=== PATIENT | female | born 1965 | race Caucasian/White ===

== ENCOUNTER 2023-05-16 14:23 | Inpatient (IN) | payer SELFPAY ==
[2023-05-16] MEDS ORDERED: Zolpidem Tartrate 5 MG TAB PO PRN (19:44)
[2023-05-16] MEDS ORDERED: Calcium Carbonate 500 MG ChewTAB PO PRN (19:44)
[2023-05-16] MEDS ORDERED: Senokot S 8.6-50 MG TAB PO PRN (19:44)
[2023-05-16] MEDS ORDERED: Ondansetron PF 4 MG/2 ML Vial IVP PRN (19:44)
[2023-05-16] MEDS ORDERED: Guaifenesin DM 100-10/5 ML UDCUP PO PRN (19:44)
[2023-05-16] MEDS ORDERED: Morphine 2 MG/ML VIAL SLOW IVP PRN (19:48)
[2023-05-16] MEDS ORDERED: Ipratropium/Albuterol 3 ML NEB NEB PRN (19:50)
[2023-05-16] MEDS ORDERED: Lactated Ringer's 500 ML IV SCH ×2 (20:00→22:15)
[2023-05-16] MEDS ORDERED: Carvedilol 6.25 MG TAB PO SCH (20:00)
[2023-05-16 20:18] VITALS: BMI 32.4
[2023-05-16] MEDS: Atorvastatin Calcium 40 MG TAB PO SCH (20:38)
[2023-05-16] MEDS: Famotidine 20 MG TAB PO SCH (20:38)
[2023-05-16] MEDS: Acetaminophen 325 MG TAB PO PRN (20:38)
[2023-05-16] MEDS: HYDROcodone/Acetaminophen 5/325 mg Tablet PO PRN (20:38)
[2023-05-16] MEDS: Benzonatate 100 MG CAP PO SCH (20:38)
[2023-05-16 21:12] LABS: Bilirubin 1+ (Negative); Blood, Urine 150 (Negative); Clarity Clear (Clear); Glucose, Urine (Dipstick) Normal (Negative); Ketone, Urine 5 mg/dL (Negative); Leukocyte 25 (Negative); Nitrite Negative (Negative); Protein, Urine (Dipstick) 100 mg/dl (Neg-Trace)
[2023-05-16 21:30] LABS: Legionella Urinary Ag Negative (Negative); Strep pneumo Urine Ag NEGATIVE (NEGATIVE)
[2023-05-16 21:57] LABS: Bacteria/HPF 1+ HPF (None Seen); WBC/HPF 0-3 HPF (0-3)
[2023-05-17 03:59] LABS: #Basophils 0.1 10x3/uL (0.0-0.2); #Eosinphils 0.2 10x3/uL (0.0-0.5); #Monocytes 1.5 10x3/uL (0.0-1.1); #Neutrophils 8.3 10x3/uL (1.5-8.4); %Basophils 0.5 % (0.0-2.0); %Eosinophils 1.9 % (0.0-6.0); %Lymphocytes 18.2 % (18.0-47.0); %Monocytes 11.9 % (0.0-10.0); %Neutrophils 67.3 % (40.0-75.0); Hematocrit 33.3 % (34.9-44.5); Hemoglobin 10.7 g/dL (12.0-15.5); Mean Corpuscular HGB CONC 32.1 g/dL (32.0-36.0); Mean Corpuscular Hemoglobin 27.9 pg (27.0-33.0); Mean Corpuscular Volume 86.9 fl (81.6-98.3); Mean Platelet Volume 9.2 fl (7.4-10.4); Platelet Count 207 10x3/uL (150-450); RBC Distribution Width 13.7 % (11.5-14.5); Red Blood Cell (RBC) Count 3.83 10x6/uL (3.90-5.03); White Blood Cell (WBC) Count 12.3 10x3/uL (3.5-10.5)
[2023-05-17 04:17] LABS: Anion Gap 15 mmol/L (10-20); BUN (Urea Nitrogen) 10 mg/dL (9.8-20.1); Calc. Creatinine Clearance 130 mL/min (70-130); Calcium 8.5 mg/dL (7.8-10.44); Carbon Dioxide 21 mmol/L (22-29); Chloride 106 mmol/L (98-107); Estimated GFR 104; Glucose 102 mg/dL (70-105); Potassium 3.6 mmol/L (3.5-5.1); Sodium 138 mmol/L (136-145)
[2023-05-17] MEDS: HYDROcodone/Acetaminophen 5/325 mg Tablet PO PRN (05:50)
[2023-05-17] MEDS: Carvedilol 6.25 MG TAB PO SCH ×2 (08:00→15:40)
[2023-05-17 08:32] LABS: Troponin I 0.092 ng/mL (< 0.028)
[2023-05-17] MEDS: Aspirin 81 mg Enteric Coated Tablet PO SCH (09:00)
[2023-05-17] MEDS: Famotidine 20 MG TAB PO SCH ×2 (09:00→20:24)
[2023-05-17] MEDS: Benzonatate 100 MG CAP PO SCH ×3 (09:00→20:24)
[2023-05-17] MEDS: cefTRIAXone\\ROCEPHIN 2 GM in Sodium Chloride 0.9% 100 ML IVPB SCH (09:57)
[2023-05-17] MEDS: Azithromycin 500 MG in Sodium Chloride 0.9% 250 ML 250 ML IVPB SCH (10:05)
[2023-05-17 13:11] LABS: Hemoglobin A1c 5.6 % (4.0-6.0)
[2023-05-17] MEDS ORDERED: hydrALAZINE 20 MG/ML VIAL SLOW IVP PRN (16:16)
[2023-05-17] MEDS: Atorvastatin Calcium 40 MG TAB PO SCH (20:24)
[2023-05-17] MEDS: Acetaminophen 325 MG TAB PO PRN (20:24)
[2023-05-17] MEDS ORDERED: diphenhydrAMINE 50 MG/ML VIAL IVP SCH (22:15)
[2023-05-17] MEDS ORDERED: Metoclopramide HCl 10 MG/2 ML VIAL IVP SCH (22:15)
[2023-05-17] MEDS ORDERED: Sodium Chloride 0.9% 500 ML IV SCH (22:15)
[2023-05-18 03:20] LABS: #Basophils 0.1 10x3/uL (0.0-0.2); #Eosinphils 0.3 10x3/uL (0.0-0.5); #Monocytes 1.4 10x3/uL (0.0-1.1); %Basophils 0.5 % (0.0-2.0); %Eosinophils 2.3 % (0.0-6.0); %Lymphocytes 22.4 % (18.0-47.0); %Monocytes 12.4 % (0.0-10.0); Hematocrit 30.7 % (34.9-44.5); Hemoglobin 10.1 g/dL (12.0-15.5); Mean Corpuscular HGB CONC 32.9 g/dL (32.0-36.0); Mean Corpuscular Hemoglobin 28.7 pg (27.0-33.0); Mean Corpuscular Volume 87.2 fl (81.6-98.3); Mean Platelet Volume 9.9 fl (7.4-10.4); Platelet Count 238 10x3/uL (150-450); RBC Distribution Width 13.6 % (11.5-14.5); Red Blood Cell (RBC) Count 3.52 10x6/uL (3.90-5.03); White Blood Cell (WBC) Count 11.3 10x3/uL (3.5-10.5)
[2023-05-18 03:39] LABS: Anion Gap 15 mmol/L (10-20); BUN (Urea Nitrogen) 11 mg/dL (9.8-20.1); Calc. Creatinine Clearance 134 mL/min (70-130); Calcium 8.3 mg/dL (7.8-10.44); Carbon Dioxide 22 mmol/L (22-29); Chloride 105 mmol/L (98-107); Estimated GFR 104; Glucose 95 mg/dL (70-105); Potassium 3.7 mmol/L (3.5-5.1); Sodium 138 mmol/L (136-145)
[2023-05-18 03:56] LABS: Troponin I 0.081 ng/mL (< 0.028)
[2023-05-18] MEDS: Benzonatate 100 MG CAP PO SCH ×3 (09:51→21:34)
[2023-05-18] MEDS: Aspirin 81 mg Enteric Coated Tablet PO SCH (09:51)
[2023-05-18] MEDS: Famotidine 20 MG TAB PO SCH ×2 (09:51→21:35)
[2023-05-18] MEDS: Carvedilol 6.25 MG TAB PO SCH ×2 (09:52→16:27)
[2023-05-18] MEDS: Acetaminophen 325 MG TAB PO PRN (09:52)
[2023-05-18] MEDS: cefTRIAXone\\ROCEPHIN 2 GM in Sodium Chloride 0.9% 100 ML IVPB SCH (09:52)
[2023-05-18] MEDS: Azithromycin 500 MG in Sodium Chloride 0.9% 250 ML 250 ML IVPB SCH (09:52)
[2023-05-18] MEDS: Atorvastatin Calcium 40 MG TAB PO SCH (21:34)
[2023-05-18] MEDS: Apixaban 5 MG TAB PO SCH (21:34)
[2023-05-19] MEDS: Acetaminophen 325 MG TAB PO PRN (00:50)
[2023-05-19] MEDS: Aspirin 81 mg Enteric Coated Tablet PO SCH (08:33)
[2023-05-19] MEDS: Carvedilol 6.25 MG TAB PO SCH (08:33)
[2023-05-19] MEDS: Apixaban 5 MG TAB PO SCH (08:34)
[2023-05-19] MEDS: cefTRIAXone\\ROCEPHIN 2 GM in Sodium Chloride 0.9% 100 ML IVPB SCH (08:34)
[2023-05-19] MEDS: Benzonatate 100 MG CAP PO SCH ×2 (08:34→14:00)
[2023-05-19] MEDS: Famotidine 20 MG TAB PO SCH (08:34)
[2023-05-19] MEDS: Azithromycin 500 MG in Sodium Chloride 0.9% 250 ML 250 ML IVPB SCH (12:00)
[2023-05-19 13:38] VITALS: BP 132/72; TEMP 98.3
[2023-05-19] MEDS ORDERED: Metoprolol Tartrate 25 MG TAB PO SCH (21:00)
== END 2023-05-19 16:13 | disposition home or self-care (01) | DRG 871 ==
LOC: CSHTELE 19:12 → OBSVTOIN 19:44 → CSHIMCU 05-17 20:16 → CSHTELE 05-18 17:11
PROVIDERS: ADMIT Internal Medicine; ATTEND Internal Medicine
DX: A41.9 Sepsis, unspecified organism (principal); I21.A1 Myocardial infarction type 2; I26.99 Other pulmonary embolism without acute cor pulmonale; J18.9 Pneumonia, unspecified organism; J96.01 Acute respiratory failure with hypoxia; I82.433 Acute embolism and thrombosis of popliteal vein, bilateral; I50.32 Chronic diastolic (congestive) heart failure; E78.5 Hyperlipidemia, unspecified; I11.0 Hypertensive heart disease with heart failure; D53.9 Nutritional anemia, unspecified; I25.10 Atherosclerotic heart disease of native coronary artery without angina pectoris; Z86.711 Personal history of pulmonary embolism; Z90.710 Acquired absence of both cervix and uterus; Z79.82 Long term (current) use of aspirin; Z79.899 Other long term (current) drug therapy; Z90.49 Acquired absence of other specified parts of digestive tract; Z98.890 Other specified postprocedural states; Z87.891 Personal history of nicotine dependence
CPT/HCPCS: 36415; 80048; 81001; 83036; 84145; 84484; 85025; 87449; 87899; 93005; 93010; 93306; 93970; 94760; J0456; J0696; J1200; J1650; J2272; J2405; J2765; J3490; J7030; J7050; J7120